=== PATIENT | female | born 1930 | race Caucasian/White ===

== ENCOUNTER 2018-08-05 09:50 | Observation (INO) | payer MEDICARE, OTHER ==
[~2018-08-05] VITALS: Ht 162.6 cm; Wt 48.5 kg
[2018-08-05 10:35] LABS: HEMATOCRIT 44.4 % (37.0-47.0); IMMATURE GRANULOCYTES 0.4 % (0.0-5.0); MEAN CELL VOLUME 88.8 fL CALC (80.0-100.0); MEAN CORPUSCULAR HGB CONC 31.5 g/L CALC (32.0-36.0); NEUT# 8.42 thou/uL (2.00-7.15); RED CELL DISTRI WIDTH 15.2 % (11.5-15.5)
[2018-08-05 10:57] LABS: ALBUMIN 4.7 g/dL (3.2-5.0); ALKALINE PHOSPHATASE 103 u/l (38-126); ANION GAP 17 (6-22 (CALC)); BILIRUBIN, TOTAL 0.7 mg/dL (0.0-1.4); BUN 37 mg/dL (8-23); BUN/CREATININE RATIO 37 (12-20 (CALC)); CARBON DIOXIDE 28 mmol/l (22-30); CHLORIDE 102 mmol/l (95-108); GFR 52 ML/MIN (>=60 (CALC)); GFR FOR AFR.AMER. > 60 ML/MIN (>=60 (CALC)); LIPASE 76 u/l (23-300); POTASSIUM 4.7 mmol/l (3.5-5.1); SGOT/AST 34 u/l (9-36); SODIUM 141 mmol/l (137-146); TOTAL PROTEIN 7.9 g/dL (6.3-8.2)
[2018-08-05] MEDS ORDERED: ROPINIROLE0.25 MG PO (14:37)
[2018-08-05] MEDS ORDERED: PRAVASTATIN40 MG PO (14:37)
[2018-08-05] MEDS ORDERED: SINGULAIR10 MG PO (14:37)
[2018-08-05] MEDS ORDERED: WARFARIN4 MG PO (14:38)
[2018-08-05] MEDS ORDERED: COREG6.25 MG PO (14:38)
[2018-08-05] MEDS ORDERED: LEVOTHYROXIN50 MCG PO (14:39)
[2018-08-05] MEDS ORDERED: DIGOXIN0.125 MG PO ×2 (14:39→14:41)
[2018-08-05] MEDS ORDERED: LOSARTAN POT50 MG PO (14:40)
[2018-08-05] MEDS ORDERED: LASIX 40 MG TAB40 MG PO (14:41)
[2018-08-05] MEDS ORDERED: FUROSEMIDE40 MG PO (14:42)
[2018-08-05] MEDS ORDERED: VITAMIN D31000 UNI1 PO (14:43)
[2018-08-05] MEDS ORDERED: SUPER B COMP PO (14:44)
[2018-08-05 15:05] LABS: INTERNATIONAL NORMALIZED RATIO 1.8 RATIO (0.7-1.3); PROTHROMBIN TIME 18.9 SECONDS (9.0-12.5)
[2018-08-05 15:15] LABS: URINE BILIRUBIN - DIPSTICK NEGATIVE (NEGATIVE); URINE BLOOD DIPSTICK TRACE-LYSED (NEGATIVE); URINE COLOR YELLOW; URINE GLUCOSE - DIPSTICK NEGATIVE (NEGATIVE); URINE KETONE NEGATIVE (NEGATIVE); URINE LEUK ESTERASE NEGATIVE (NEGATIVE); URINE NITRITE - DIPSTICK NEGATIVE (Negative); URINE PH 5.5 (4.5-8.0); URINE PROTEIN - DIPSTICK NEGATIVE (NEG-TRACE); URINE UROBILINOGEN - DIPSTICK 0.2 E.U./dL (0.2)
[2018-08-05 15:35] VITALS: BP 119/52
[2018-08-05 19:11] VITALS: BP 120/54
[2018-08-06 00:20] VITALS: BP 123/58
[2018-08-06 04:00] VITALS: BP 125/69
[2018-08-06 05:25] LABS: ALKALINE PHOSPHATASE 65 u/l (38-126); AMYLASE < 30 u/l (30-110); ANION GAP 12 (6-22 (CALC)); BILIRUBIN, TOTAL 0.4 mg/dL (0.0-1.4); BUN 30 mg/dL (8-23); BUN/CREATININE RATIO 30 (12-20 (CALC)); CARBON DIOXIDE 26 mmol/l (22-30); CHLORIDE 105 mmol/l (95-108); GFR 52 ML/MIN (>=60 (CALC)); GFR FOR AFR.AMER. > 60 ML/MIN (>=60 (CALC)); LIPASE 115 u/l (23-300); MAGNESIUM 2.2 mg/dL (1.6-2.3); POTASSIUM 4.2 mmol/l (3.5-5.1); SGOT/AST 27 u/l (9-36); SODIUM 139 mmol/l (137-146)
[2018-08-06 06:17] LABS: HEMATOCRIT 39.1 % (37.0-47.0); IMMATURE GRANULOCYTES 0.3 % (0.0-5.0); MEAN CELL VOLUME 91.1 fL CALC (80.0-100.0); MEAN CORPUSCULAR HGB CONC 30.7 g/L CALC (32.0-36.0); NEUT# 4.05 thou/uL (2.00-7.15); RED BLOOD COUNT 4.29 mill/uL (4.20-5.60); RED CELL DISTRI WIDTH 15.5 % (11.5-15.5)
[2018-08-06 06:34] LABS: ALBUMIN 3.3 g/dL (3.2-5.0); TOTAL PROTEIN 5.9 g/dL (6.3-8.2)
[2018-08-06 08:05] VITALS: BP 120/53
[2018-08-06 11:34] VITALS: BP 136/57
[2018-08-06 15:49] VITALS: BP 121/60
[2018-08-06 19:50] VITALS: BP 114/74
[2018-08-07 00:10] VITALS: BP 122/66
[2018-08-07 04:25] VITALS: BP 107/58
[2018-08-07 05:43] LABS: HEMATOCRIT 36.4 % (37.0-47.0); HEMOGLOBIN 11.2 g/dl (12.0-16.0); IMMATURE GRANULOCYTES 0.2 % (0.0-5.0); MEAN CELL VOLUME 91.2 fL CALC (80.0-100.0); MEAN CORPUSCULAR HGB 28.1 pG CALC (26.0-32.0); MEAN CORPUSCULAR HGB CONC 30.8 g/L CALC (32.0-36.0); NEUT# 3.05 thou/uL (2.00-7.15); RED BLOOD COUNT 3.99 mill/uL (4.20-5.60); RED CELL DISTRI WIDTH 15.1 % (11.5-15.5)
[2018-08-07 06:02] LABS: INTERNATIONAL NORMALIZED RATIO 1.7 RATIO (0.7-1.3); PROTHROMBIN TIME 18.1 SECONDS (9.0-12.5)
[2018-08-07 06:16] LABS: ALBUMIN 3.2 g/dL (3.2-5.0); ALKALINE PHOSPHATASE 71 u/l (38-126); AMYLASE 34 u/l (30-110); ANION GAP 12 (6-22 (CALC)); BILIRUBIN, TOTAL 0.4 mg/dL (0.0-1.4); BUN 24 mg/dL (8-23); BUN/CREATININE RATIO 30 (12-20 (CALC)); CARBON DIOXIDE 24 mmol/l (22-30); CHLORIDE 106 mmol/l (95-108); CREATININE 0.8 mg/dL (0.5-1.0); GFR > 60 ML/MIN (>=60 (CALC)); GFR FOR AFR.AMER. > 60 ML/MIN (>=60 (CALC)); LIPASE 72 u/l (23-300); POTASSIUM 4.6 mmol/l (3.5-5.1); SGOT/AST 26 u/l (9-36); SODIUM 138 mmol/l (137-146); TOTAL PROTEIN 5.8 g/dL (6.3-8.2)
[2018-08-07 08:12] VITALS: BP 117/47; BP 117/50
[2018-08-07 08:17] VITALS: BP 117/50
== END 2018-08-07 12:41 | disposition home or self-care (01) ==
LOC: ED 09:50 → ED-I 14:23 → ED 14:37 → MS2 14:38
PROVIDERS: Emergency Medicine; ADMIT Internal Medicine Nephrology; ATTEND Internal Medicine Nephrology
DX: K56.600 Partial intestinal obstruction, unspecified as to cause (principal); I10 Essential (primary) hypertension; I48.2 Chronic atrial fibrillation; E03.9 Hypothyroidism, unspecified; G25.81 Restless legs syndrome; E78.5 Hyperlipidemia, unspecified; Z95.0 Presence of cardiac pacemaker; Z85.42 Personal history of malignant neoplasm of other parts of uterus
CPT/HCPCS: J1650; Q9967

== ENCOUNTER 2019-10-24 18:30 | Observation (INO) | payer MEDICARE, OTHER ==
[~2019-10-24] VITALS: Ht 162.6 cm; Wt 54.4 kg
[~2019-10-24 18:30] MED LIST: COREG6.25 MG PO; DIGOXIN0.125 MG PO; FUROSEMIDE40 MG PO; LASIX 40 MG TAB40 MG PO; LEVOTHYROXIN50 MCG PO; LOSARTAN POT50 MG PO; PRAVASTATIN40 MG PO; ROPINIROLE0.25 MG PO; SINGULAIR10 MG PO; SUPER B COMP PO; VITAMIN D31000 UNI1 PO; WARFARIN4 MG PO
--- NOTE | 2019-10-24 18:35 | NUR ---
PT TO ROOM AMBULATORY WITH HARD C COLLAR INTACT. PT C/O NO BM TODAY LOWER ABD PAIN. PT STATES SHE WEARS NE[place] BRACE D/T CERVICAL NECK FX IN JULY.
--- NOTE | 2019-10-24 19:10 | NUR ---
ALREADY RECEIVED REPORT FROM SOLA GARCIA. PT MEDICATED FOR PAIN AND MED REC DONE.
[2019-10-24] MEDS ORDERED: WARFARIN3 MG PO (19:19)
[2019-10-24 19:25] LABS: IMMATURE GRANULOCYTES 0.3 % (0.0-5.0); MEAN CELL VOLUME 87.8 fL CALC (80.0-100.0); MEAN CORPUSCULAR HGB 26.9 pG CALC (26.0-32.0); MEAN CORPUSCULAR HGB CONC 30.7 g/dL CAL (32.0-36.0); NEUT# 7.17 thou/uL (2.00-7.15); RED BLOOD COUNT 5.31 mill/uL (4.20-5.60); RED CELL DISTRI WIDTH 15.5 % (11.5-15.5)
[2019-10-24 19:26] LABS: HEMATOCRIT 46.6 % (37.0-47.0); HEMOGLOBIN 14.3 g/dl (12.0-16.0)
[2019-10-24 19:53] LABS: INTERNATIONAL NORMALIZED RATIO 1.7 RATIO (0.7-1.3); PROTHROMBIN TIME 16.9 SECONDS (9.0-12.5)
[2019-10-24 20:02] LABS: ALKALINE PHOSPHATASE 104 u/l (38-126); ANION GAP 17 (6-22 (CALC)); BUN 25 mg/dL (8-23); BUN/CREATININE RATIO 25 (12-20 (CALC)); CARBON DIOXIDE 23 mmol/l (22-30); CHLORIDE 101 mmol/l (95-108); GFR 52 ML/MIN (>=60 (CALC)); GFR FOR AFR.AMER. > 60 ML/MIN (>=60 (CALC)); LIPASE 118 u/l (23-300); POTASSIUM 4.8 mmol/l (3.5-5.1); SGOT/AST 42 u/l (9-36); SODIUM 137 mmol/l (137-146)
[2019-10-24 20:07] LABS: ALBUMIN 4.4 g/dL (3.2-5.0); BILIRUBIN, TOTAL 0.9 mg/dL (0.0-1.4); TOTAL PROTEIN 7.7 g/dL (6.3-8.2)
--- NOTE | 2019-10-24 20:32 | NUR ---
PT BACK FROM CT, DENIES ANY PAIN AT THIS TIME
--- NOTE | 2019-10-24 21:35 | NUR ---
REPORT GIVEN TO SOLA SALMON. PT STATES NO PAIN NOW AND NO N/V.
--- NOTE | 2019-10-24 21:37 | NUR ---
Admission Note Report Given to: SOLA SALMON Transported by: Wheelchair X Stretcher Transported with: X Nurse Transporter X Patent IV [employer] Business Analyst Location: ICU X [facility]
[2019-10-24 21:48] VITALS: BP 129/46
[2019-10-24 22:21] LABS: URINE BILIRUBIN - DIPSTICK NEGATIVE (NEGATIVE); URINE BLOOD DIPSTICK NEGATIVE (NEGATIVE); URINE COLOR YELLOW; URINE GLUCOSE - DIPSTICK NEGATIVE (NEGATIVE); URINE KETONE NEGATIVE (NEGATIVE); URINE LEUK ESTERASE NEGATIVE (NEGATIVE); URINE NITRITE - DIPSTICK NEGATIVE (Negative); URINE PROTEIN - DIPSTICK NEGATIVE (NEG-TRACE); URINE SPECIFIC GRAVITY <=1.005; URINE UROBILINOGEN - DIPSTICK 0.2 E.U./dL (0.2)
--- NOTE | 2019-10-24 23:00 | NUR ---
PATIENT ADMITTED FROM ER VIA STRETCHER WITH ER STAFF IN ATTENDANCE. PATIENT IN C-COLLAR FROM PREVIOUS FALL IN JUL 2019 THAT RESULTED IN FX CERVICAL VETEBRAE. PATIENT AWAKE ALERT AND ORIENTEDX3-MIN ASSIST TO BR. URINE SPEC OBTAINED AND SENT TO LAB. PATIENT ASSISTED TO BED. IVF NS HUNG AND INFUSING AT 125CC/HR VIA RIGHT FOREARM SITE. SITE IS HEALTHY AT THIS TIME. PATIENT IS ADMITTED FOR ABD PAIN/BOWEL OBSTRUCTION. PATIENT STATES THAT THIS HAS HAPPENED BEFORE-SHE RECOGNIZED THE SX AND WAS BROUGHT TO THE ER. LAST BM WAS YESTERDAY-10/23/19. ABD IS SLIGHTLY DISTENDED BUT SOFT WITH HYPOACTIVE BS. LUNGS ARE CLEAR. NO PEDAL EDEMA NOTED. PULSES ARE PALPABLE. PATIENT DENIES ANY PAIN OR NAUSEA AT THIS TIME. ORIENTED TO ROOM AND SURROUNDINGS. INSTRUCTED ON USE OF NURSE CALL LIGHT SYSTEM, TV REMOTE AND PHONE. SAFETY PRECAUTIONS REINFORCED. CALL LIGHT IN REACH. WILL CONT TO MONITOR.
[2019-10-24 23:45] VITALS: BP 113/45
[2019-10-25 03:45] VITALS: BP 117/86
--- NOTE | 2019-10-25 05:00 | NUR ---
PATIENT RESTING IN BED AT THIS TIME-WAS UP TO THE BR TO VOID AND STATES THAT SHE DID PASS SOME GAS. FEELING BETTER THIS MORNING. STILL NPO. IVF PATENT AND INFUSING VIA RIGHT FOREARM. SITE REMAINS HEALTHY. CALL LIGHT IN REACH. WILL CONT TO MONITOR.
[2019-10-25 08:00] VITALS: BP 113/58
--- NOTE | 2019-10-25 09:00 | NUR ---
PT AWAKE, ALERT, ORIENTED X 3. PT WEARS C-COLLAR FROM PREVIOUS INJURY, VERY COMPLIANT. LUNGS CLEAR, 2 LPM. HYPOACTIVE BOWEL SOUNDS, TENDER ABDOMEN. NO REPORT OF NAUSEA OR VOMITING.
--- NOTE | 2019-10-25 13:00 | NUR ---
PT SEEN BY DR INMAN TODAY, CLEAR DIET ORDERED, PT TOLERATED WELL. PT HAS BEEN AMBULATING IN ROOM WITH STEADY GAIT. NO COMPLAINTS OF NAUSEA OR VOMITING.
[2019-10-25 16:00] VITALS: BP 125/70
--- NOTE | 2019-10-25 18:37 | NUR ---
PT REMAINS BEFORE, SEEN RESTING IN THE BED WITH EYES CLOSED, NO EVIDENCE OF DISTRESS.
[2019-10-25 19:10] VITALS: BP 136/59
--- NOTE | 2019-10-25 21:00 | NUR ---
PATIENT SITTING UP ON COUCH IN ROON READING AT THIS TIME-AWAKE ALERT AND ORIENTEDX3 WITH NO COMPLAINTS AT THIS TIME. PATIENT DENIES ANY ABD PAIN OR NAUSEA. STATES THE SHE DID HAVE 2 BM'S TODAY-LAST ONE WAS MODERATE AMT OF SMALL BROWN BALLS. PASSING FLATUS. NO DIFFICULTY WITH URINATION. ABLE TO TOLERATE CLEAR LIQUID DIET WELL. PATIENT PROVIDED WITH POPCYCLE REQUESTING.L IVF NS PATENT TO LEFT AC SITE AT 125CC/HR. SAFETY PRECAUTIONS REINFORCED. CALL LIGHT IN REACH. WILL CONT TO MONITOR.
--- NOTE | 2019-10-26 03:36 | NUR ---
PATIENT UP TO THE BR FOR ANOTHER LOOSE BROWN STOOL. VOIDED 300CC OF YELLOW URINE. SB ASSIST BACK TO BED. PATIENT C/O SOME CRAMPING AND PASSING GAS. SLIGHTLY NAUSEA BUT DECLINES PAIM OR NAUSEA MEDS. ASKSED THAT THE IVF BE PUT ON HOLD AT THIS TIME. CALL LIGHT IN REACH. WILL CONT TO MONITOR,.
[2019-10-26 03:45] VITALS: BP 126/62
[2019-10-26 07:25] VITALS: BP 130/56
--- NOTE | 2019-10-26 08:03 | NUR ---
PT ADVANCED TO SOFT DIET PER HER REQUEST AND PER DOCTOR'S NOTED INDICATING THAT INTENTION. PT HAS SEVERAL BMs DURING THE NIGHT. NO NAUSEA OR VOMITING OR DIARRHEA.
[2019-10-26 08:59] VITALS: BP 130/56
--- NOTE | 2019-10-26 10:42 | NUR ---
PT AWARE OF NEED FOR STOOL FOR CDT CHECK. PT CONTINUES AMBULATORY IN ROOM, NO DISTRESS, NO NAUSEA.
[2019-10-26 13:15] LABS: C. DIFFICILE TOXIN A&B NEGATIVE (NEGATIVE)
== END 2019-10-26 14:52 | disposition home or self-care (01) ==
LOC: ED 18:30 → ED-I 20:50 → ED 21:04 → MS2 21:05
PROVIDERS: Family Medicine; Nurse Practitioner Family; ADMIT Internal Medicine; ATTEND Internal Medicine
DX: K56.600 Partial intestinal obstruction, unspecified as to cause (principal); E11.9 Type 2 diabetes mellitus without complications; I10 Essential (primary) hypertension; I48.91 Unspecified atrial fibrillation; E03.9 Hypothyroidism, unspecified; Z92.3 Personal history of irradiation; Z95.0 Presence of cardiac pacemaker; Z85.42 Personal history of malignant neoplasm of other parts of uterus; Z79.01 Long term (current) use of anticoagulants
CPT/HCPCS: G0378; Q9967